=== PATIENT | female | born 1950 | race Caucasian/White ===

== ENCOUNTER 2024-03-04 16:24 | Inpatient (IN) | payer OTHER, SELFPAY ==
[2024-03-04 11:54] VITALS: BP 114/65
[2024-03-04 12:06] VITALS: BP 119/99; BMI 37.1
[2024-03-04 12:38] LABS: % Basophils 0.3 % (0-2); % Immature Granulocytes 0.6 % (0-0.5); % Lymphocytes 9.7 % (20.5-51.1); % Neutrophils 83.4 % (42.2-75.2); Absolute Immature Granulocytes 0.1 10^3/uL (0-0.05); Absolute Lymphocytes 0.9 10^3/uL (1.2-3.4); Absolute Monocytes 0.5 10^3/uL (0.1-0.6); Absolute Neutrophils 7.3 10^3/uL (1.4-6.5); Hematocrit 43.4 % (37.0-47.0); Hemoglobin 12.7 g/dL (12.0-16.0); Mean Corp Hgb Conc. 29.3 g/dL (33.0-37.0); Mean Corpuscular Hgb 29.3 pg (27.0-31.0); Mean Platelet Volume 10.7 fL (7.4-10.4); Nucleated Red Blood Cells % 0 %; Platelet Count 203 10^3/uL (130-400); Red Blood Cell Count 4.34 10^6/uL (4.20-5.40); Red Cell Dist. Width 14.3 % (11.5-14.5); White Blood Cell Count 8.8 10^3/uL (4.8-10.8)
[2024-03-04 12:57] LABS: Lactic Acid 0.9 mmol/L (0.7-2.0)
[2024-03-04 12:58] LABS: ALT (SGPT) 16 U/L (0-35); AST (SGOT) 19 U/L (14-36); Albumin 3.8 g/dl (3.5-5.0); Alkaline Phosphatase 89 U/L (38-126); Blood Urea Nitrogen 19 mg/dl (7-17); Calcium 8.4 mg/dl (8.4-10.2); Carbon Dioxide 39 mmol/L (22-30); Chloride 97 mmol/L (98-107); Estimated Creatinine Clearance 69 ml/min; Glucose 134 mg/dl (70-99); Potassium 4.7 mmol/L (3.5-5.1); Sodium 139 mmol/L (135-145); Total Bilirubin 0.7 mg/dl (0.2-1.3); Total Protein 6.3 g/dl (6.3-8.2); eGFR > 60.00
--- NOTE | 2024-03-04 13:08 | ED.GENMED ---
History of Present Illness
General
Chief Complaint: Breathing Problem
Source: patient and ambulance crew
Exam Limitations: none
Time Seen by Provider: 03/04/24 12:33
Nursing documentation reviewed up to this point in time: agreed with
History of Present Illness
History of Present Illness:
73-year-old female presents emergency room complaining of muscle weakness, confusion and shortness of breath. She has had this happen before and COPD exacerbations. She denies fevers.
Past History
Past History
ED Past Medical History: COPD
ED Past Surgical History: Gynecological (Tubal ligation)
Social History
Tobacco: Former smoker
Alcohol: None
Drug: None
Review of Systems
Review of Systems
Allergies reviewed?: Yes
All Other Systems: Not applicable
Constitutional: Reports no symptoms
EENT: Reports no symptoms
Respiratory: Reports cough and trouble breathing
Cardiac: Reports no symptoms
ABD/GI: Reports no symptoms
: Reports dark urine
Musculoskeletal: Reports no symptoms
Skin: Reports no symptoms
Neurological: Reports no symptoms
Hematologic/Lymphatic: Reports no symptoms
Psychiatric: Reports no symptoms
Phy Exam
Physical Exam
Physical Exam:
Physical Exam
General: 2 L nasal cannula, afebrile
Neck: supple. no meningeal signs. normal posterior pharynx
Heart: s1/s2 regular rate and rhythm, no murmur. equal radial
pulses.
HEENT: Pupils equal round reactive to light, EOMI
Lungs: Moderate respiratory distress. Decreased breath sounds and wheezing bilaterally
Abdomen: normal bowel sounds. not tender. no CVAT
Neuro: alert and oriented. no focal neurological deficits cranial nerves II through XII intact
Skin: no rash
Psychiatric: well kept. interactive and cooperative
Extremities: no edema. no calf tenderness. negative homans. good distal pulses
Scores
Heart Failure Risk
Heart Failure Risk Score: Yes
History of Stroke or TIA: No
History of intubation for respiratory distress: No
Heart rate on ED arrival >/= 110: No
SaO2 <90% on arrival on room air: Yes
HR >/=110 during 3min walk test (or too ill to perform test): No
ECG has acute ischemic changes: No
Urea >/=12mmol/L (BUN 33.6mg/dL): No
Serum CO2>/=35mmol/L: Yes
Troponin I or T elevated to MT Level (0.4mg/dL): No
NT-proBNP >/=5,000ng/L (5,000pg/ml): No
HF Risk Score: 3
Admission Status: HIGH RISK 15.9% Consider SNF treatment or admission to hospital
Course
Orders/Labs/Results
Orders:
Orders
03/04/24 Lunch
Cholesterol Lowering
At Your Request: Full Participation
Does patient need a safe tray?: No
Fluid Restriction: 1500 mL/day (50 oz)
Cholesterol Lowering: Sodium, 2 Gram
03/04/24 12:01
EKG [Electrocardiogram (*1)] Urgent
Reason for Study: Shortness of Breath
EKG- Treatment ONCE
03/04/24 12:20
Cardiac Monitoring- Treatment ONCE
03/04/24 12:23
Complete Blood Count/With Diff Urgent
Comprehensive Metabolic Panel Urgent
Lactic Acid Q4H
Comment: ON ICE, CANCEL 2ND ORDER IF FIRST LACTIC ACID LEVEL <2
03/04/24 13:07
CR Chest - 2 Views Urgent
Comment:
Reason For Exam: short of breath
03/04/24 13:08
Ipratropium/Albuterol Sulfate [Duoneb] 3 ml INH R NOW STA
03/04/24 13:59
COVID-19 Antigen Urgent
Source: Nasal Swab
Influenza A+B Rapid Molecular Urgent
SEBAS Source: Nasal Swab
Specimen Description:
03/04/24 14:29
NT-proBNP Urgent
Troponin I Urgent
03/04/24 15:13
Dexamethasone Sod Phosphate [Decadron] 10 mg IV NOW STA
03/04/24 15:36
CT Chest Angio W/wo Iv Contras Urgent
Comment: Aortic dissection or aneurysm cannot be excluded
Reason For Exam: Prominence of the descending thoracic aorta
03/04/24 15:39
Furosemide [Lasix] 20 mg IV NOW STA
03/04/24 15:59
Admit/Transfer Patient As Directed
Co-Sign Provider:
Level of Care: Inpatient admission
Assign to:: Telemetry
Physician / Group: pastor/hospitalist
Diagnosis: hypoxemia/pulm edema
Reason for Telemetry: Pulmonary Edema
Date to Stop Telemetry: 03/07/24
Time to Stop Telemetry: 11:00
Reason for Hospitalization: hypoxemia/pulm edema
Expected length of stay greater than two midnights?: Yes
ELOS- Estimated Length of Stay in days: 5
I certify the patient meets the requirements for IP care: Yes
PRN Pain Medication Management As Directed
May give lesser potent ordered pain med per pt: Yes
preference::
Protocol:: Medication orders for pain may be administered in a
manner that supports deferring to patient preference
when the pt is:
- Requesting an ordered lesser potent pain medication.
Least to most potent pain medications are defined
as: acetaminophen < NSAID < tramadol < opioids
(morphine, oxycodone, hydromorphone).
- Requesting a lesser dose of the same medication IF
ORDERED.
- Requesting a less intrusive route of administration
if both routes are prescribed by the provider (PO <
IV).
03/04/24 16:01
Code Status As Directed
Resuscitation Status: Full Code
03/04/24 18:24
Cetirizine HCl [Zyrtec] 10 mg PO DAILYPRN PRN
Diazepam [Valium] 7.5 mg PO DAILYPRN PRN
Enoxaparin Sodium [Lovenox] 40 mg SC QPM
Ipratropium/Albuterol Sulfate [Duoneb] 3 ml INH R Q4HPRN PRN
03/04/24 18:24
Activity As Directed
Activity Level: Out of Bed-Early Mobility
Intake/ Output As Directed
Frequency: Per unit guidelines
Patient Education As Directed
Type: CHF folder
Comment: give on admission. Document in Interdisciplinary Education record
Sleep Apnea Assessment by RN As Directed
Comment:
Physician Instructions:
Vital Signs As Directed
Frequency: Other
Additional Instructions:: Q12 or per unit guidelines if more frequent.
Weight As Directed
Frequency: Daily
Type of Scale: Standing Scale
Comment: Daily morning weight. If unable to stand, use balanced bed scale.
Weight As Directed
Frequency: Once
Type of Scale: Standing Scale
Comment: Upon Admission. If unable to stand, use balanced bed scale.
O2 Therapy [RESP] Routine
Titrate/Wean O2 to maintain O2 sat greater than (%): 89
Pulse Ox/cont/shift [RESP] Routine
Quantity: 1
Special Instructions: Daily pulse oximetry at rest. If greater than 92% at rest also obtain pulse oximetry
while ambulating as tolerated.
DX Deep Vein Thrombosis Video Routine
03/04/24 20:00
Ipratropium/Albuterol Sulfate [Duoneb] 3 ml INH R QID
03/04/24 20:25
Troponin I Q6H
Comment: at admission & every 6 hours x 2 (3 total), ECG to be done with each level
Venous Blood Gas Routine
%Oxygen/Room Air: 94
Comment: NC
03/05/24 02:47
Troponin I Q6H
Comment: at admission & every 6 hours x 2 (3 total), ECG to be done with each level
03/05/24 06:00
Echo 2D MMode Color/Doppler IN AM
Reason for Study: heart failure
Levothyroxine [Synthroid] 25 mcg PO DAILY@0600
03/05/24 07:12
Basic Metabolic Panel IN AM
Magnesium IN AM
TSH Reflex To Free T4 IN AM
03/05/24 08:00
Amlodipine [Norvasc] 10 mg PO DAILY
Buprenorphine [Subutex] 24 mg SL DAILY
Furosemide [Lasix] 40 mg IV DAILY
Rosuvastatin Calcium [Crestor] 10 mg PO DAILY
03/06/24 06:00
Basic Metabolic Panel IN AM
03/07/24 11:00
DC Protocol for Telemetry ONCE
Abnormal Lab Results
03/04/24
12:23
MCV 100.0 H fL
(81.0-99.0)
MCHC 29.3 L g/dL
(33.0-37.0)
MPV 10.7 H fL
(7.4-10.4)
Abs Immat Gran (auto) 0.1 H 10^3/uL
(0-0.05)
Absolute Neuts (auto) 7.3 H 10^3/uL
(1.4-6.5)
Absolute Lymphs (auto) 0.9 L 10^3/uL
(1.2-3.4)
Immature Gran % 0.6 H %
(0-0.5)
Neutrophils % 83.4 H %
(42.2-75.2)
Lymphocytes % 9.7 L %
(20.5-51.1)
Chloride 97 L mmol/L
(98-107)
Carbon Dioxide 39 H mmol/L
(22-30)
BUN 19 H mg/dl
(7-17)
Glucose 134 H mg/dl
(70-99)
03/04/24 12:23
03/04/24 12:23
Vital Signs
Initial and Last Documented VS:
Initial Vital Signs
Temp Pulse Resp BP Pulse Ox
99.0 F 81 16 114/65 97
03/04/24 11:54 03/04/24 11:54 03/04/24 11:54 03/04/24 11:54 03/04/24 11:54
Last Documented Vital Signs
Temp Pulse Resp BP Pulse Ox
98.8 F 67 18 115/67 98
03/05/24 07:00 03/05/24 07:35 03/05/24 07:35 03/05/24 07:00 03/05/24 07:35
MDM/Problems Addressed
Differential Diagnosis Includes:
CHF, pneumonia, COPD exacerbation
Chronic conditions affecting care: COPD
Acute Exacerbation and/or Progression of Chronic Illness: COPD
*Radiology
Radiology exam reviewed: radiology read reviewed (Chest x-ray shows mild pulmonary edema)
*Pulse Oximetry
Patient hypoxic: yes
*EKG
Interpreted by ED Provider?: Yes
EKG Intrepretation Date: 03/04/24
EKG Intrepretation Time: 12:04
Interpretation: normal
Comparison EKG: no comparison EKG present
Heart Rate: 77
Rate: normal
Rhythm: sinus
Ulm: normal axis
Interval: normal interval
QRS Pattern: normal QRS
Ischemia: no ischemia
*Pathology Secretary/Transcriptionist Interpretation
Rate: normal
Interpretation: normal
Heart Rate: 75
Rhythm: sinus
*Critical Care Note
Total Time (30-74mins, 75-104mins- exclusive of procedures): Not Applicable
Patient Management
Social determinants of health affecting care: Living situation and Strong social support
Discussion with other providers: Hospitalist
Escalation/DeEscalation of care consider admission/obs:
admit indicated
ED Attending Note
-
Portions of this chart may have been created with voice recognition software.� Occasional wrong word or��sound alike� substitutions may have occurred due to the inherent limitations of voice recognition software.
Discharge Plan
Departure
Patient Disposition: Admit
Date of Disposition: 03/04/24
Time of Disposition: 15:04
Admit to: Telemetry
Presentation/result/management discussed w/ accepting MD/DO: Hospitalist
Patient with high blood pressure during this ER visit?: No
Condition: Good
Discharge Problem:
Acute exacerbation of chronic obstructive pulmonary disease
Interventions
Interventions:
*Risk Screen - Suicide Last Done: 03/04/24 19:59
*General Assessment Last Done: 03/04/24 12:07
*Neglect/Abuse Screening Last Done: 03/04/24 12:07
*ED COVID-19 Vaccine History Last Done: 03/04/24 12:07
*Nursing Disposition Last Done: 03/04/24 18:33
ED- Cardiac Assessment Last Done: 03/04/24 17:57
ED- Pulmonary Assessment Last Done: 03/04/24 12:17
Discharge Date and Time
Discharge Date/Time: 03/04/24 18:35
[2024-03-04] MEDS: DUONEB 3 ML INH ×2 (13:55→20:55)
[2024-03-04 14:24] VITALS: BP 151/71
[2024-03-04 14:32] LABS: COVID-19 Antigen Negative (Negative)
[2024-03-04 15:19] LABS: NT-proBNP 2650 pg/ml; Troponin I 0.022 ng/ml
--- NOTE | 2024-03-04 15:38 | HPS.HSE ---
Family Physician
-
Family Physician: David Pereira
Chief Complaint
-
shortness of breath
History of Present Illness
73-year-old female with extensive past medical history was presenting from home with complaints of muscle cramping, confusion and mild shortness of breath. States she has a history of obstructive sleep apnea and is on nightly BiPAP. States uses a
BiPAP for maybe 3 to 4 hours at a time. Does not use BiPAP throughout the night. Uses around 3 L of oxygen at home. Denies any productive cough. States she was told she had fever while en route to the ER. Denies any sick contacts lives alone.
States of heavy history of cigarette smoking in the past. Lives alone. Follows with pulmonary at [facility]. States she feels short of breath after going to flights of stairs. Denies any lower extremity edema. Denies any chest
pain orthopnea or PND. Denies any prior cardiac history of congestive heart failure. States she had stress test exercise year ago was found to be normal. States she is recovering from recent viral gastroenteritis has had multiple episode of
diarrhea at home. States her PCP told her she had norovirus and her symptoms have resolved. Denies any nausea or vomiting. States she also had urinary tract infection recently. Currently denies any dysuria or hematuria.
Medical History
Past Medical History
Past Medical History: Reports Other
Additional Past Medical History:
Primary retention
Hyperlipidemia
Anxiety
COPD
Chronic hypercapnic respiratory failure
Chronic hypoxic respiratory failure
Obstructive sleep apnea
Suspected obesity hypoventilation syndrome
Past Surgical History: Reports None (Patient denies)
Social History
Tobacco: Former Smoker (Used to smoke a pack a day for greater than 20 years)
Alcohol: None
Living: Alone
Family History
Family History: Not pertinent
Allergies / Home Medications
Allergies reflects when Allergies were last updated in [employer].
Home Medications with original date entered in [employer]
Allergy/Medication List:
Allergies
Allergy/AdvReac Type Severity Reaction Status Date / Time
cefaclor [From Ceclor] Allergy Unknown Verified 03/04/24 12:05
levofloxacin [From Levaquin] Allergy Hives Verified 03/04/24 12:05
Quinazolinones Allergy Unknown Verified 03/04/24 12:04
Home Medications
albuterol sulfate 90 mcg/actuation aerosol inhaler 2 puff inhalation R Q6HPRN PRN sob 03/04/24
amlodipine 10 mg tablet 10 mg PO DAILY 03/04/24
buprenorphine 8 mg-naloxone 2 mg sublingual tablet 3 tab sublingual DAILY 03/04/24
cetirizine 10 mg tablet (Zyrtec) 10 mg PO DAILYPRN PRN allergies 03/04/24
diazepam 5 mg tablet 7.5 mg PO DAILYPRN PRN anxiety 03/04/24
fluticasone fur. 100 mcg-umeclid 62.5 mcg-vilant 25 mcg inhalat.powder (Trelegy Ellipta) 1 inh inhalation R DAILY 03/04/24
furosemide 40 mg tablet 40 mg PO DAILYPRN PRN swelling 03/04/24
ibuprofen 200 mg tablet 800 mg PO DAILYPRN PRN mild pain 03/04/24
levothyroxine 25 mcg tablet 25 mcg PO DAILY 03/04/24
losartan 100 mg tablet 100 mg PO HS 03/04/24
meloxicam 15 mg tablet 15 mg PO DAILY 03/04/24
rosuvastatin 10 mg tablet 10 mg PO DAILY 03/04/24
zolpidem 5 mg tablet (Ambien) 5 mg PO HS 03/04/24
Review of Systems
-
History Source: Patient
A 12 point ROS was completed and negative except as noted: Yes
Physical Exam
Vital Signs
Vital Signs
Temp Pulse Resp BP Pulse Ox
99.0 F 80 25 119/99 94
03/04/24 12:06 03/04/24 12:50 03/04/24 12:50 03/04/24 12:06 03/04/24 12:50
Physical Exam
General: Well Developed, Well Nourished, No Apparent Distress, Appears Chronically Ill and Morbidly Obese
HEENT: NormoCephalic, Moist mucous membranes, Atraumatic, No Ptosis, Nose Appears Normal, Ears Appear Normal and Oxygen
Respiratory: Decreased Breath Sounds; No Accessory Resp Muscle Use
Cardiac: S1/S2 and Regular Rhythm; No Murmur or Rub
GI: Soft, Non Tender, Non Distended and Normal Bowel Sounds; No Organomegaly
Rectal: Deferred by Provider
Musculoskeletal: No Clubbing, No Cyanosis and No Edema
Skin: No Rash
Neuro: Awake, Alert, Oriented, AO x 3, No Motor Deficits and Nonfocal/grossly intact
Psych: Anxious
Laboratory Results
-
03/04/24 12:23
03/04/24 12:23
Laboratory Results
Lactic Acid Cancelled 03/04/24 16:30
Total Bilirubin 0.7 mg/dl (0.2-1.3) 03/04/24 12:23
AST 19 U/L (14-36) 03/04/24 12:23
ALT 16 U/L (0-35) 03/04/24 12:23
Alkaline Phosphatase 89 U/L (38-126) 03/04/24 12:23
Troponin I 0.022 ng/ml 03/04/24 14:29
Impression/Plan
-
#Acute on chronic hypoxic respiratory failure
#Chronic hypercapnic respiratory failure
Shortness of breath likely multifactorial due to combination of pulmonary edema/congestive heart failure and mild component of COPD exacerbation
BNP elevated at 2650
Trend troponin
Chest x-ray noted with finding of pulmonary edema. Monitor left lower lobe atelectasis versus scarring. Prominence of the descending thoracic aorta probably due to tortuosity. Aortic dissection or aneurysm cannot be excluded. This would better be
evaluated by chest CT examination with IV contrast if indicated clinically.
Status post 10 mg of IV Decadron in the ER
Status post 20 mg of Lasix in the ER
Check CT chest angio to rule out aortic pathology
Monitor response after Lasix and start patient on standing 40mg Lasix in am
Echocardiogram on Wednesday
Afebrile. WBC normal.
COVID and influenza negative.
Continue with bronchodilators
#Primary hypertension
Continue with Norvasc
Hold losartan is receiving IV contrast and Lasix
#Hypothyroidism
Continue with Synthroid
#Severe anxiety
Continue with Valium as needed
#Insomnia
Hold Ambien
#WANDA
#Suspected obesity hypoventilation syndrome
Morbid obesity due to excess calories
BiPAP nightly and prn with NAPs
DVT prophylaxis with Lovenox
Full code
I spent a total of 80 minutes with the patient or on the floor. More than 50% of this time involved counseling and coordination of care.
[2024-03-04] MEDS: LASIX 20 MG IV (16:41)
[2024-03-04 16:43] VITALS: BP 117/71
[2024-03-04] MEDS: DECADRON 10 MG IV (16:44)
[2024-03-04 18:38] VITALS: BP 144/71
[2024-03-04 18:41] VITALS: BMI 37.8
[2024-03-04 20:32] LABS: Venous Blood Gas B.E. 10.4 mmol/L (-4 to +4); Venous Blood Gas HCO3 40.4 mmol/L (22-27); Venous Blood Gas pH 7.29 (7.32-7.43); Venous Blood Gas pO2 87 mmHg (30-50)
[2024-03-04 20:34] LABS: Venous Blood Gas pCO2 84 mmHg (35-48)
--- NOTE | 2024-03-04 20:41 | W.PN.UPDATE ---
Update Note
Progress Note Update
VBG result
continue with Bipap and will rechec vbg
[2024-03-04] MEDS: SYMBICORT 80/4.5 MCG INHALER INH ×2 (20:55→21:18)
[2024-03-04 21:02] LABS: Troponin I 0.056 ng/ml
[2024-03-04] MEDS: VALIUM 7.5 MG PO (21:11)
[2024-03-04] MEDS: MELATONIN 5 MG PO (21:11)
[2024-03-04 23:49] VITALS: BP 126/71
[2024-03-05 03:35] VITALS: BP 128/68
[2024-03-05 03:40] LABS: Troponin I 0.046 ng/ml
[2024-03-05 06:00] VITALS: BMI 37.7
[2024-03-05] MEDS: SYNTHROID 25 MCG PO (06:23)
[2024-03-05 07:00] VITALS: BP 115/67
[2024-03-05 07:25] LABS: Venous Blood Gas B.E. 11.2 mmol/L (-4 to +4); Venous Blood Gas HCO3 39.7 mmol/L (22-27); Venous Blood Gas O2 Sat % 89.4 %; Venous Blood Gas pH 7.35 (7.32-7.43); Venous Blood Gas pO2 57 mmHg (30-50)
[2024-03-05 07:28] LABS: Venous Blood Gas pCO2 72 mmHg (35-48)
[2024-03-05] MEDS: SYMBICORT 80/4.5 MCG INHALER 2 PUFF INH (07:31)
[2024-03-05] MEDS: SPIRIVA RESPIMAT 2.5 MCG INH (07:31)
[2024-03-05] MEDS: DUONEB 3 ML INH ×4 (07:31→19:38)
[2024-03-05 07:57] LABS: Blood Urea Nitrogen 21 mg/dl (7-17); Calcium 8.3 mg/dl (8.4-10.2); Chloride 96 mmol/L (98-107); Estimated Creatinine Clearance 63 ml/min; Glucose 116 mg/dl (70-99); Magnesium 2.2 mg/dl (1.6-2.3); Potassium 4.9 mmol/L (3.5-5.1); Sodium 141 mmol/L (135-145); eGFR > 60.00
[2024-03-05 08:08] LABS: Carbon Dioxide 35 mmol/L (22-30)
[2024-03-05 08:38] LABS: TSH Reflex To Free T4 4.69 uIU/ml (0.47-4.68)
[2024-03-05 09:05] LABS: Free T4 0.87 ng/dl (0.78-2.19)
[2024-03-05] MEDS: CRESTOR 10 MG PO (09:38)
[2024-03-05] MEDS: SUBUTEX 24 MG SL (09:38)
[2024-03-05] MEDS: NORVASC 10 MG PO (09:39)
[2024-03-05] MEDS: LASIX 40 MG IV (09:41)
[2024-03-05 11:00] VITALS: BP 108/70
--- NOTE | 2024-03-05 11:21 | CM ---
CM reviewed chart, patient seen bedside, initial assessment completed. Patient resides independently in a mobile home, [address] [place] [address]. Patient reports she has two supportive children. Patient is on bi-pap, home O2 ([employer]), denies VN or SNF history,
has been to outpatient PT. Patient confirms PCP David Pereira, pharmacy [facility] in [place], confirms prescription coverage. Patient denies insecurities at home. CM will continue to follow for all discharge planning needs.
Plan; home no needs anticipated.
--- NOTE | 2024-03-05 12:53 | W.PN.HOSP.TC ---
Today's Communication/Plan
-
Encouraged to use BiPAP as much as possible at nighttime and during daytime with naps
Continue with IV Lasix
Echo pending for the morning
Continue with the bronchodilators
Assessment / Plan
Assessment / Plan
General: Well Developed, Well Nourished, No Apparent Distress, Appears Chronically Ill and Morbidly Obese
HEENT: NormoCephalic, Moist mucous membranes, Atraumatic, No Ptosis, Nose Appears Normal, Ears Appear Normal and Oxygen
Respiratory: Decreased Breath Sounds; No Accessory Resp Muscle Use
Cardiac: S1/S2 and Regular Rhythm; No Murmur or Rub
GI: Soft, Non Tender, Non Distended and Normal Bowel Sounds; No Organomegaly
Rectal: Deferred by Provider
Musculoskeletal: No Clubbing, No Cyanosis and No Edema
Skin: No Rash
Neuro: Awake, Alert, Oriented, AO x 3, No Motor Deficits and Nonfocal/grossly intact
Psych: Anxious
#Acute on chronic hypoxic respiratory failure
#Suspected acute on chronic hypercapnic respiratory failure likely secondary to noncompliance with BiPAP
#Shortness of breath likely multifactorial due to combination of pulmonary edema/congestive heart failure
# Elevated troponin likely due to nonischemic myocardial injury. EKG noted without any acute ST or T wave changes.
# Severe pulmonary hypertension
BNP elevated at 2650
Trend troponin-downtrended
Chest x-ray noted with finding of pulmonary edema. Monitor left lower lobe atelectasis versus scarring. Prominence of the descending thoracic aorta probably due to tortuosity. Aortic dissection or aneurysm cannot be excluded. This would better be
evaluated by chest CT examination with IV contrast if indicated clinically.
Status post 10 mg of IV Decadron in the ER. No need for systemic steroids for now. Continue with bronchodilators
Status post 20 mg of Lasix in the ER
Check CT chest angio negative for pulmonary embolism or aortic pathology.
Continue with Lasix 40 mg
Echocardiogram on Wednesday
Afebrile. WBC normal.
COVID and influenza negative.
Continue with bronchodilators
Recommended to patient to use BiPAP throughout the night and during daytime. VBG improving. If no improvement will ask pulmonary for eval
#Primary hypertension
Continue with Norvasc
Hold losartan is receiving IV contrast and Lasix
# Subclinical hypothyroidism
Continue with Synthroid
Repeat TFTs in 4 to 6 weeks
#Severe anxiety
Continue with Valium as needed
#Insomnia
Hold Ambien
#WANDA
#Suspected obesity hypoventilation syndrome
Morbid obesity due to excess calories
BiPAP nightly and prn with NAPs
Recent viral gastroenteritis
Seems to have resolved
DVT prophylaxis with Lovenox
Full code
Anticipated Discharge: > 48 hours
Subjective/Interval History
-
Date of Service: March 05, 2024
states used home Bipap overnight for 3-4 hours
passing increasing amount of urine
Objective Data
-
Labs:
Laboratory Results
03/05/24
07:12
Sodium 141
Potassium 4.9
Chloride 96 L
Carbon Dioxide 35 H
BUN 21 H
Creatinine 0.9
Glucose 116 H
Calcium 8.3 L
Vital Signs:
Vital Signs
Temp Pulse Resp BP Pulse Ox
98.4 F 66 18 108/70 95
03/05/24 11:00 03/05/24 11:28 03/05/24 11:28 03/05/24 11:00 03/05/24 11:28
I&O
03/04/24 03/05/24 03/06/24
06:59 06:59 06:59
Intake Total 240 / 240
Balance 240 / 240
Data Reviewed
-
Total Time Spent with Patient (in minutes): 55
[2024-03-05 15:00] VITALS: BP 119/50
[2024-03-05] MEDS: SYMBICORT 80/4.5 MCG INHALER INH ×2 (19:38→19:45)
[2024-03-05 19:47] VITALS: BP 112/69
[2024-03-05 23:52] VITALS: BP 107/61
[2024-03-06] MEDS: VALIUM 7.5 MG PO (00:55)
[2024-03-06 03:11] VITALS: BP 104/61
[2024-03-06] MEDS: SYNTHROID 25 MCG PO (05:16)
[2024-03-06 05:52] VITALS: BMI 37.8
[2024-03-06 07:00] VITALS: BP 121/70
[2024-03-06] MEDS: SYMBICORT 80/4.5 MCG INHALER 2 PUFF INH (08:05)
[2024-03-06] MEDS: SPIRIVA RESPIMAT 2.5 MCG 2 PUFF INH (08:05)
[2024-03-06] MEDS: DUONEB 3 ML INH ×3 (08:05→15:33)
[2024-03-06 08:37] LABS: Blood Urea Nitrogen 24 mg/dl (7-17); Calcium 8.2 mg/dl (8.4-10.2); Chloride 93 mmol/L (98-107); Estimated Creatinine Clearance 71 ml/min; Glucose 98 mg/dl (70-99); Potassium 4.5 mmol/L (3.5-5.1); Sodium 139 mmol/L (135-145); eGFR > 60.00
[2024-03-06 08:47] LABS: Carbon Dioxide 38 mmol/L (22-30)
[2024-03-06] MEDS: SUBUTEX 24 MG SL (09:07)
[2024-03-06] MEDS: CRESTOR 10 MG PO (09:07)
[2024-03-06] MEDS: NORVASC 10 MG PO (09:08)
[2024-03-06] MEDS: LASIX 40 MG IV (09:09)
--- NOTE | 2024-03-06 10:02 | W.PN.HOSP.TC ---
Addendum entered and electronically signed by Dilip Spaulding DO 03/06/24 17:01:
Echocardiogram shows LVEF 60 to 65%, normal regional wall motion.
Mild aortic stenosis. Mild TR.
Patient requesting discharge today as per nursing.
Stable for discharge. She has home oxygen already, BiPAP as well.
Discharge on furosemide 40 mg daily, not as needed. Follow-up with PCP next week. BMP next week.
Original Note:
Today's Communication/Plan
-
Await echocardiogram
Assessment / Plan
Assessment / Plan
Gen-AAOx3, NAD
HEENT-NC, AT, anicteric, clear oral mm
Neck-supple
CV-reg, no M, +S1/S2
Lungs-clear B/L
Abd-soft, NT, ND
Ext-no edema
Musculoskeletal-no cyanosis, clubbing
Skin-warm and dry
Neuro-grossly non-focal
Psych-calm, cooperative
Acute on chronic hypoxic respiratory failure -moderate respiratory distress noted in the emergency room.
Suspected acute on chronic hypercapnic respiratory failure likely secondary to noncompliance with BiPAP
Shortness of breath likely multifactorial due to combination of pulmonary edema/congestive heart failure
Elevated troponin likely due to nonischemic myocardial injury. EKG noted without any acute ST or T wave changes.
Severe pulmonary hypertension
BNP elevated at 2650
Trend troponin-downtrended
Chest x-ray noted with finding of pulmonary edema. Monitor left lower lobe atelectasis versus scarring. Prominence of the descending thoracic aorta probably due to tortuosity. Aortic dissection or aneurysm cannot be excluded. This would better be
evaluated by chest CT examination with IV contrast if indicated clinically.
Status post 10 mg of IV Decadron in the ER. No need for systemic steroids for now. Continue with bronchodilators
Status post 20 mg of Lasix in the ER
Check CT chest angio negative for pulmonary embolism or aortic pathology.
Continue with Lasix 40 mg
Echocardiogram on Wednesday
Afebrile. WBC normal.
COVID and influenza negative.
Continue with bronchodilators
Recommended to patient to use BiPAP throughout the night and during daytime.
Essential hypertension
Continue with Norvasc
Hold losartan is receiving IV contrast and Lasix
Subclinical hypothyroidism
Continue with Synthroid
Repeat TFTs in 4 to 6 weeks
Severe anxiety
Continue with Valium as needed
Insomnia
Hold Ambien
WANDA
Suspected obesity hypoventilation syndrome
Morbid obesity due to excess calories
BiPAP nightly and prn with NAPs
Recent viral gastroenteritis
Seems to have resolved
DVT prophylaxis with Lovenox
Full code
Anticipated Discharge: Within 24 hours
Subjective/Interval History
-
Date of Service: March 06, 2024
Patient seen and examined. Feeling better. Denies shortness of breath.
Objective Data
-
Labs:
Laboratory Results
03/06/24
07:19
Sodium 139
Potassium 4.5
Chloride 93 L
Carbon Dioxide 38 H
BUN 24 H
Creatinine 0.8
Glucose 98
Calcium 8.2 L
Vital Signs:
Vital Signs
Temp Pulse Resp BP Pulse Ox
98.4 F 76 16 121/70 95
03/06/24 07:00 03/06/24 08:08 03/06/24 08:08 03/06/24 07:00 03/06/24 07:00
I&O
03/05/24 03/06/24 03/07/24
06:59 06:59 06:59
Intake Total 240 / 240 840 / 840
Balance 240 / 240 840 / 840
Review of Systems
-
History Source: Patient
All other systems: Reviewed and negative
--- NOTE | 2024-03-06 10:35 | CM ---
CM reviewed chart, patient seen bedside. Patient reports she is feeling better today, hopeful for discharge. IMM reviewed verbally, provided with copy, placed in chart. Patient reports her daughter or son will provide transportation home. CM will
continue to follow for all discharge planning needs.
Plan; home no needs, patient on home O2.
[2024-03-06 11:00] VITALS: BP 114/71
[2024-03-06 15:00] VITALS: BP 111/90
--- NOTE | 2024-03-06 16:59 | W.DS.TRANS ---
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
-
Discharge Instructions:
Discharge Diagnosis/Procedures COPD exacerbation, congestive heart failure
Diet 2 Gram Sodium,Low Fat,Low Cholesterol,Restrict
fluids to 48 oz
Activity As tolerated
Driving Restrictions As prior to admission
Bathing Restrictions None
Blood Work BMP next week with your primary care doctor
Instructions: *PCP/Other [employer] Operator Heart Failure Instructions
Stand-Alone Forms:
Changes to Home Medications: No
Discharge Medications:
DC Medications w/original date entered in [employer]
albuterol sulfate 90 mcg/actuation aerosol inhaler 2 puff inhalation R [id number] PRN sob 03/04/24
amlodipine 10 mg tablet 10 mg PO DAILY Blood Pressure 03/04/24
buprenorphine 8 mg-naloxone 2 mg sublingual tablet 3 tab sublingual DAILY 03/04/24
cetirizine 10 mg tablet (Zyrtec) 10 mg PO DAILYPRN PRN allergies 03/04/24
diazepam 5 mg tablet 7.5 mg PO DAILYPRN PRN anxiety 03/04/24
fluticasone fur. 100 mcg-umeclid 62.5 mcg-vilant 25 mcg inhalat.powder (Trelegy Ellipta) 1 inh inhalation R DAILY Lung/Breathing Issues 03/04/24
levothyroxine 25 mcg tablet 25 mcg PO DAILY Thyroid 03/04/24
losartan 100 mg tablet 100 mg PO HS Blood Pressure 03/04/24
rosuvastatin 10 mg tablet 10 mg PO DAILY High Cholesterol 03/04/24
zolpidem 5 mg tablet (Ambien) 5 mg PO HS Sleep 03/04/24
furosemide 40 mg tablet 40 mg PO DAILY #30 tabs 03/06/24
Home Medication Changes
Pending Results: No
== END 2024-03-06 18:55 | disposition home or self-care (01) | DRG 291 ==
LOC: 4 WEST ACU 16:24
PROVIDERS: Nurse Practitioner Family; ADMITTING PHYSICIAN Hospitalist; ATTENDING PHYSICIAN Hospitalist; EMERGENCY PHYSICIAN Emergency Medicine; FAMILY PHYSICIAN Family Medicine
DX: I11.0 Hypertensive heart disease with heart failure (principal); J96.21 Acute and chronic respiratory failure with hypoxia; J96.22 Acute and chronic respiratory failure with hypercapnia; J44.1 Chronic obstructive pulmonary disease with (acute) exacerbation; I5A Non-ischemic myocardial injury (non-traumatic); I50.9 Heart failure, unspecified; I27.20 Pulmonary hypertension, unspecified; F41.9 Anxiety disorder, unspecified; G47.33 Obstructive sleep apnea (adult) (pediatric); E66.01 Morbid (severe) obesity due to excess calories; E03.9 Hypothyroidism, unspecified; Z91.199 Patient's noncompliance with other medical treatment and regimen due to unspecified reason; Z68.37 Body mass index [BMI] 37.0-37.9, adult; Z87.891 Personal history of nicotine dependence
CPT/HCPCS: 71046; 71275; 80048; 80053; 82805; 83605; 83735; 83880; 84439; 84443; 84484; 85025; 87502; 87811; 93005; 93306; 94640; 96374; 96375; 99285; Q9967